=== PATIENT | male | born 1990 | race Caucasian/White ===

== ENCOUNTER → 2017-08-19 | Day surgery (SDC) | payer BC ==
[~2017-08-19] MED LIST: Diprivan 20 ML ONE; Midazolam HCl 2 mg/2 ml Vial ONE; Ondansetron HCl/PF 4 MG/2 ML Vial ONE; Promethazine HCl 25 MG/ML VIAL ONE; Propofol 200 MG/20 ML VIAL ONE; Succinylcholine Chloride 20 MG/ML 10 ml SYRINGE FS ONE
--- NOTE | 2017-08-19 23:25 | OP ---
DATE OF PROCEDURE: 08/19/2017 PROCEDURE: Esophagogastroduodenoscopy with removal of foreign body and biopsy. PREOPERATIVE DIAGNOSIS: Esophageal meat impaction. OPERATIVE NOTE: Informed consent was obtained from the patient. He was sedated with general anesth esia. The bite block was placed and the endoscope was advanced to the distal esophagus where a meat bolus was encountered. This was grasped with a polypectomy snare and pulled out through the patien t's mouth into 3 pieces. The remainder of the meat bolus could then be pushed through the stricture into the stomach. There were vertical furrows in the esophagus consistent with eosinophilic esopha gitis. There was an erosion in the distal esophagus above the area of the stricture. The stomach w as normal including retroflexed views. The pylorus and first and second portions of the duodenum we re normal. Biopsies were obtained from the esophagus and the distal and proximal esophagus to rule out eosinophilic esophagitis. IMPRESSION: 1. Esophageal food bolus impaction removed with polypectomy snare through the patient's mouth. 2. Distal esophageal stricture and esophageal findings consistent with eosinophilic esophagitis. 3. Otherwise, normal esophagogastroduodenoscopy. RECOMMENDATIONS: 1. Await histopathology. 2. Pantoprazole 40 mg daily. 3. Start fluticasone 220 mcg inhaler to be swallowed two puffs twice daily for 4 weeks and then one puff twice daily for 4 weeks and then stop. 4. Follow up in GI clinic in 4 weeks.
--- NOTE | 2017-08-19 23:43 | CON ---
DATE OF CONSULTATION: 08/19/2017 GASTROENTEROLOGY ER CONSULTATION CHIEF COMPLAINT: \\\\"Food stuck in my esophagus.\\\\" HISTORY OF PRESENT ILLNESS: Mr. Hendrix is a 27-year-old man with a history of eosinophilic esophagit is and prior food bolus impactions, who presented to the emergency room with a piece of Venison ritu k stuck in his esophagus since around 8:00 p.m. last night. He has had to spit out his saliva and l iquids that he tried to drink since then. He has no other abdominal pain, diarrhea, constipation, b lood in stool, or weight loss. His last EGD was in 2013 when biopsies were obtained that did show i ncreased eosinophils, however, only 18 per high power field. Vertical furrows were noted in the eso phagus at that time. PAST MEDICAL HISTORY: Esophageal stricture and eosinophilic esophagitis with recurrent food bolus i mpactions. PAST SURGICAL HISTORY: EGD. FAMILY HISTORY: Positive for breast cancer in his mother. SOCIAL HISTORY: No tobacco. He drinks 2 or 3 drinks per day on Thursday and Thursday night. No drug s. REVIEW OF SYSTEMS: Negative x10 systems reviewed except as stated in the history of present illness . PHYSICAL EXAMINATION LUNGS: Clear to auscultation bilaterally. HEART: Regular rate and rhythm without murmur. ABDOMEN: Soft, nontender, nondistended, bowel sounds are present, no hepatomegaly. EXTREMITIES: No lower extremity edema. IMPRESSION: 1. Esophageal meat impaction. 2. History of eosinophilic esophagitis. PLAN: EGD.
== END ==
LOC: ERS 17:23 → SDC/OP 20:09
PROVIDERS: ATTEND Internal Medicine Gastroenterology
PROC: 0DC58ZZ Extirpation of Matter from Esophagus, Via Natural or Artificial Opening Endoscopic (ICD-10-PCS; principal; 2017-08-19)
PROC: 0DB58ZX Excision of Esophagus, Via Natural or Artificial Opening Endoscopic, Diagnostic (ICD-10-PCS; principal; 2017-08-19)
DX: K20.9 Esophagitis, unspecified (principal)
CPT/HCPCS: 88305; 88312; 88313; 96361; 96374; J1610; J2250; J2405; J2550; J2704